=== PATIENT | female | born 1975 | race Caucasian/White ===

== ENCOUNTER 2019-05-28 21:11 | Emergency (ER) | payer OTHER ==
[2019-05-28] MEDS ORDERED: Cephalexin 250 MG CAP ONE (21:35)
[2019-05-28] MEDS ORDERED: Acetaminophen/Codeine 30-300mg Tablet ONE (21:35)
== END 2019-05-28 21:37 | disposition home or self-care (01) ==
LOC: BURERS 21:11
DX: L02.412 Cutaneous abscess of left axilla (principal); L03.114 Cellulitis of left upper limb; F25.9 Schizoaffective disorder, unspecified
CPT/HCPCS: 99283